=== PATIENT | female | born 1970 | race Caucasian/White ===

== ENCOUNTER → 2017-11-21 | Outpatient (CLI) | payer OTHER | END | disposition home or self-care (01) | LOC: CVU 06:45 | PROVIDERS: ATTEND Surgery | DX: I83.812 Varicose veins of left lower extremity with pain (principal); I87.2 Venous insufficiency (chronic) (peripheral) | CPT/HCPCS: 93971 ==

== ENCOUNTER → 2018-01-02 | Outpatient (CLI) | payer OTHER ==
[~2018-01-02] MED LIST: ALBU8.5H8 INH; BUPR150T20 PO; FEXO180T15 PO; FLUT1DIS5 IH; PANT40TA3 PO
[2018-01-02 09:21] LABS: ANION GAP 0 mmol/L (5-15); CALCIUM 8.9 mg/dL (8.5-10.1); CHLORIDE 109 mmol/L (98-107); CREATININE 0.96 mg/dL (0.55-1.02)
== END | disposition home or self-care (01) ==
LOC: STAR 08:23
PROVIDERS: ATTEND Surgery
DX: Z01.818 Encounter for other preprocedural examination (principal); I83.12 Varicose veins of left lower extremity with inflammation; I83.11 Varicose veins of right lower extremity with inflammation
CPT/HCPCS: 36415; 80048

== ENCOUNTER 2018-01-08 11:06 | Day surgery (SDC) | payer OTHER ==
[~2018-01-08] VITALS: Ht 149.9 cm; Wt 78.6 kg
[2018-01-08 11:56] VITALS: BP 138/86
[2018-01-08] MEDS ORDERED: LACTATED RINGERS 1,000 ML IV SCH (12:29)
[2018-01-08 12:31] LABS: HCG UR SG 1.017 (1.003-1.030)
[2018-01-08] MEDS ORDERED: FENTANYL PF 250 MCG/5ML ONE (12:56)
[2018-01-08] MEDS ORDERED: MIDAZOLAM 1 MG/ML, 2ML ONE (12:56)
[2018-01-08] MEDS ORDERED: HEPARIN 5,000 UNITS/ML, 1ML ONE (14:02)
[2018-01-08] MEDS ORDERED: SODIUM BICARBONATE 1 MEQ/ML, 50ML VIAL ONE (14:03)
[2018-01-08] MEDS ORDERED: LIDOCAINE 1%-EPI 1:100K, 30ML ONE (14:03)
[2018-01-08] MEDS ORDERED: DEXAMETHASONE 4 MG/ML, 1ML ONE (14:12)
[2018-01-08] MEDS ORDERED: ONDANSETRON 2MG/ML, 2ML ONE (14:12)
[2018-01-08] MEDS ORDERED: SUCCINYLCHOLINE 20 MG/ML, 10ML ONE (14:12)
[2018-01-08] MEDS ORDERED: PROPOFOL 10 MG/ML, 20ML ONE (14:12)
[2018-01-08] MEDS ORDERED: ROCURONIUM 10 MG/ML,10ML ONE (14:12)
[2018-01-08] MEDS ORDERED: CEFAZOLIN 1,000 MG ONE (14:12)
[2018-01-08] MEDS ORDERED: ALBUTEROL SULFATE 2.5 MG/3 ML NPPB PRN (14:30)
[2018-01-08] MEDS ORDERED: FENTANYL PF 100 MCG/2ML IV PRN (14:30)
[2018-01-08] MEDS ORDERED: LABETALOL 5MG/ML, 20ML IV PRN (14:30)
[2018-01-08] MEDS ORDERED: PROMETHAZINE 25 MG/ML, 1ML IV PRN (14:30)
[2018-01-08] MEDS ORDERED: ONDANSETRON 2MG/ML, 2ML IVPush PRN (14:30)
[2018-01-08] MEDS ORDERED: HYDROmorphone 1 MG/ML, 1ML IV PRN (14:30)
[2018-01-08] MEDS ORDERED: MEPERIDINE/PF 25MG/0.5ML IVPush PRN (14:30)
[2018-01-08] MEDS ORDERED: KETOROLAC 30 MG/1 ML IV PRN (14:30)
[2018-01-08] MEDS ORDERED: hydrALAzine 20 MG/ML, 1ML IV PRN (14:30)
[2018-01-08] MEDS ORDERED: METOCLOPRAMIDE 5 MG/ML, 2ML IV PRN (14:30)
[2018-01-08] MEDS ORDERED: OXYcodone 5 MG/5 ML ORAL.SOL UDC PO PRN (14:30)
[2018-01-08] MEDS ORDERED: FENTANYL PF 100 MCG/2ML ONE (15:20)
[2018-01-08] MEDS ORDERED: OXYcodone 5 MG/5 ML ORAL.SOL UDC ONE (15:20)
== END 2018-01-08 17:55 | disposition home or self-care (01) ==
LOC: OUT 11:06
PROVIDERS: ATTEND Surgery
DX: I83.12 Varicose veins of left lower extremity with inflammation (principal); I87.8 Other specified disorders of veins; J45.909 Unspecified asthma, uncomplicated; F32.9 Major depressive disorder, single episode, unspecified; Z88.0 Allergy status to penicillin; Z91.013 Allergy to seafood
CPT/HCPCS: 36475; 37799; 81025; C1888; J0330; J0690; J1100; J1644; J2250; J2405; J2704; J3010; J3490; J7120

== ENCOUNTER → 2018-01-12 | Outpatient (CLI) | payer OTHER | END | disposition home or self-care (01) | LOC: CVU 15:11 | PROVIDERS: ATTEND Surgery | DX: Z48.812 Encounter for surgical aftercare following surgery on the circulatory system (principal); I82.812 Embolism and thrombosis of superficial veins of left lower extremity | CPT/HCPCS: 93971 ==